=== PATIENT | male | born 1965 | race Caucasian/White ===

== ENCOUNTER 2018-10-21 10:12 | Inpatient (IN) | payer OTHER ==
[~2018-10-21] VITALS: Ht 180.3 cm; Wt 72.1 kg
[2018-10-21] MEDS ORDERED: SODIUM CHLORIDE 0.9% 1000ML 1,000 ML IV STA (10:42)
[2018-10-21 11:14] LABS: BASOPHILS % 0.2 % (0.0-1.0); EOSINOPHILS # (AUTO) 0.3 (0.0-0.4); EOSINOPHILS % 3.6 % (0.0-6.0); HEMATOCRIT 41.5 % (38.2-49.6); HEMOGLOBIN 16.1 g/dL (14.0-18.0); LYMPHOCYTES # (AUTO) 1.9 (1.0-3.2); LYMPHOCYTES % 20.2 % (18.0-39.1); MEAN CORPUSCULAR HEMOGLOBIN 36.9 pg (28-32); MEAN CORPUSCULAR HGB CONC 38.8 g/dL (31-35); MEAN CORPUSCULAR VOLUME 95.2 fL (81-99); MONOCYTES # (AUTO) 1.2 (0.2-0.8); MONOCYTES % 12.3 % (4.4-11.3); NEUTROPHILS # (AUTO) 5.9 (2.1-6.9); NEUTROPHILS % 63.3 % (38.7-80.0); PLATELET COUNT 242 x10e3/uL (140-360); RED BLOOD COUNT 4.36 x10e6/uL (4.3-5.7); RED CELL DISTRIBUTION WIDTH 10.7 % (11.7-14.4)
--- NOTE | 2018-10-21 11:28 | Diagnostic Imaging Report ---
EXAMINATION: CHEST 2 VIEWS INDICATION: ^ORDER PLACED BY ^[id number] ^1045 ^Y COMPARISON: None FINDINGS: PA and lateral views TUBES and LINES: None. LUNGS: Lungs are well inflated. Mild central peribronchovascular cuffing. PLEURA: No pleural effusion or pneumothorax. HEART AND MEDIASTINUM: The cardiomediastinal silhouette is unremarkable. BONES AND SOFT TISSUES: No acute osseous lesion. Soft tissues are unremarkable. UPPER ABDOMEN: No free air under the diaphragm. IMPRESSION: Mild central peribronchovascular cuffing. No focal consolidation. Signed by: Dr. Carlos Lemon MD on 10/21/2018 11:24 AM
[2018-10-21] MEDS ORDERED: ONDANSETRON HCL INJ 2MG/ML 2ML 2 MG/ML VIAL IV ONE (11:30)
[2018-10-21 11:35] LABS: ALANINE AMINOTRANSFERASE 62 IU/L (0-55); ALBUMIN 3.6 g/dL (3.5-5.0); ALBUMIN/GLOBULIN RATIO 0.8 (0.8-2.0); ALKALINE PHOSPHATASE 148 IU/L (40-150); BLOOD UREA NITROGEN < 5 mg/dL (7-26); CALCIUM 9.2 mg/dL (8.4-10.2); CREATINE KINASE 155 IU/L (30-200); CREATININE, SERUM 0.74 mg/dL (0.72-1.25); EST GLOMERULAR FILTRATION RATE > 60 ML/MIN (60-)
[2018-10-21 11:39] LABS: BUN/CREATININE RATIO 7 (6-25)
[2018-10-21 11:41] LABS: COLOR,URINE YELLOW (YELLOW)
[2018-10-21 11:42] LABS: BILIRUBIN,URINE NEGATIVE (NEGATIVE); CLARITY,URINE HAZY (CLEAR); KETONES,URINE NEGATIVE (NEGATIVE); LEUKOCYTE ESTERASE ,URINE TRACE (NEGATIVE); NITRITE,URINE NEGATIVE (NEGATIVE); PROTEIN,URINE DIPSTICK TRACE (NEGATIVE); URINE UROBILINOGEN 1 mg/dL (0.2 - 1)
[2018-10-21 11:51] LABS: INFLUENZAE A&B ANTIGEN (RAPID) NEGATIVE (NEGATIVE); STREPTOCOCCUS GRP A ANTIGEN NEGATIVE (NEGATIVE)
[2018-10-21 11:53] LABS: BACTERIA,URINE FEW /HPF; EPITHELIAL CELLS,URINE FEW /LPF; RBC,URINE 0-5 /HPF (0-5); WBC,URINE (MAN) 0-5 /HPF (0-5)
[2018-10-21 12:01] LABS: ANION GAP 17.6 mmol/L (8-16); CARBON DIOXIDE 22 mmol/L (22-29); CHLORIDE 80 mmol/L (98-107); POTASSIUM 3.6 mmol/L (3.5-5.1)
[2018-10-21 12:05] LABS: SODIUM 116 mmol/L (136-145)
[2018-10-21] MEDS: PIPER-TAZ 3.375 GM 50 ML IV SCH ×2 (12:37→18:21)
[2018-10-21 12:44] LABS: GLUCOSE 124 mg/dL (74-118); OSMOLALITY,SERUM 233 mOsm/kg (278-305)
--- NOTE | 2018-10-21 12:55 | Diagnostic Imaging Report ---
EXAM: CT Pelvis WITH contrast INDICATION: ^r/o abscess COMPARISON: None. TECHNIQUE: Pelvis were scanned utilizing a multidetector helical scanner from the iliac crest to the pubic symphysis after administration of IV contrast. Coronal and sagittal reformations were obtained. Routine protocol was performed. Scan was performed when during portal venous phase. IV CONTRAST: 100 mL of Isovue-370 ORAL CONTRAST: Water COMPLICATIONS: None RADIATION DOSE: Total DLP: 218.18 mGy*cm Estimated effective dose: (DLP x 0.015 x size factor) mSv CTDIvol has been reviewed. It is below the limits set by the Radiation Protocol Committee (RPC). FINDINGS: LINES and TUBES: None. GI TRACT: Mild lower rectal wall thickening. There is colonic diverticulosis without evidence of diverticulitis in the visualized portion. Visualized small bowel loops are unremarkable. No evidence of bowel obstruction. PELVIC ORGANS/BLADDER: Mild lower rectal wall thickening. Multiple pelvic phleboliths. No perineal abscess visualized. LYMPH NODES: No lymphadenopathy. VESSELS: Mild to moderate aortoiliac atherosclerotic disease. PERITONEUM / RETROPERITONEUM: No free air or fluid. BONES: Unremarkable. Left iliac sclerotic focus (series 2, image 14), likely a bone island. SOFT TISSUES: Small fat-containing left inguinal hernia. IMPRESSION: No perineal abscess visualized. Mild lower rectal wall thickening, which could represent mild proctitis in the appropriate clinical context. Signed by: Dr. Carlos Lemon MD on 10/21/2018 12:51 PM
[2018-10-21] MEDS ORDERED: SODIUM CHLORIDE 0.9% 1000ML 1,000 ML IV SCH (13:29)
[2018-10-21] MEDS ORDERED: ONDANSETRON HCL INJ 2MG/ML 2ML 2 MG/ML VIAL IV PRN (13:30)
[2018-10-21] MEDS ORDERED: PROMETHAZINE 12.5MG/ NACL 0.9% 12.5 MG/50 ML BAG IV PRN (13:30)
--- OUTSIDE RECORDS SUMMARY | 2018-10-21 13:40 | XMS REPORT ---
Author Author [facility] Address Unknown Phone Unavailable Care Team Providers Care Traffic Manager Name Role Phone Briana ASHER Unavailable Unavailable Problems This patient has no known problems. Allergies, Adverse Reactions, Alerts This patient has no known allergies or adverse reactions. Medications This patient has no known medications. Results Test Description Test Time Test Comments Text Results Atomic Results Result Comments CT PELVIS W 2018-10-21 12:43:00 [facility] [address] [place] [address] Patient Name: LUCY LUGO MR #: [id number] : 1965 Age/Sex: 53/M Req #: [id number] Adm Physician: Ordered by: SOCORRO JUAREZ DELIVERY CREW WORKER Report #: [id number] Location: ER Room/Bed: Procedure: [id number] CT/CT PELVIS W Exam Date: Exam Time: REPORT STATUS: Signed EXAM: CT Pelvis WITH contrast INDICATION: r/o abscess COMPARI SON: None. TECHNIQUE: Pelvis were scanned utilizing a multidetector helical scanner from the iliac crest to the pubic symphysis after administration of IV contrast. Coronal and sagittal reformations were obtained. Routine protocol was performed. Scan was performed when during portal venous phase. IV CONTRAST: 100 mL of Isovue-370 ORAL CONTRAST: Water COMPLICATIONS: None RADIATION DOSE: Total DLP: 218.18 mGy*cm Estimated effective dose: (DLP x 0.015 x size factor) mSv CTDIvol has been reviewed. It is below the limits set by the Radiation Protocol Committee (RPC). FINDINGS: LINES and TUBES: None. GI TRACT: Mild lower rectal wall thickening. There is colonic diverticulosis without evidence of diverticulitis in the visualized portion. Visualized small bowel loops are unremarkable. No evidence of bowel obstruction. PELVIC ORGANS/BLADDER: Mild lower rectal wall thickening. Multiple pelvic phleboliths. No perineal abscess visualized. LYMPH NODES: No lymphadenopathy. VESSELS: Mild to moderate aortoiliac atherosclerotic disease. PERITONEUM / RETROPERITONEUM: No free air or fluid. BONES: Unremarkable. Left iliac sclerotic focus (series 2, image 14), likely a bone island. SOFT TISSUES: Small fat-containing left inguinal hernia. IMPRESSION: No perineal abscess visualized. Mild lower rectal wall thickening, which could represent mild proctitis in the appropriate clinical context. Signed by: Dr. Carlos Pratt MD on 10/21/2018 12:51 PM Dictated By: CARLOS PRATT MD 1251 Transcribed By: DANICA on 10/21/18 1251 COPY TO: SOCORRO JUAREZ DELIV[employer]W WORKER CHEST 2 VIEWS 2018-10-21 11:23:00 [place] [address] Patient Name: LUCY LUGO MR #: [id number] : 1965 Age/Sex: 53/M Req #: [id number] Adm Physician: Ordered by: SOCORRO JUAREZ DELIV[employer] WORKER Report #: [id number] Location: ER Room/Bed: Procedure: [id number] DX/CHEST 2 VIEWS Exam Date: 10/21/18 Exam Time: 1045 REPORT STATUS: Signed EXAMINATION: CHEST 2 VIEWS INDICATION: ORD ER PLACED BY [id number] 1045 Y COMPARISON: None FINDINGS: PA and lateral views TUBES and LINES: None. LUNGS: Lungs are well inflated. Mild central peribronchovascular cuffing. PLEURA: No pleural effusion or pneumothorax. HEART AND MEDIASTINUM: The cardiomediastinal silhouette is unremarkable. BONES AND SOFT TISSUES: No acute osseous lesion. Soft tissues are unremarkable. UPPER ABDOMEN: No free air under the diaphragm. IMPRESSION: Mild central peribronchovascular cuffing. No focal consolidation. Signed by: Dr. Janna Pratt MD on 10/21/2018 11:24 AM Dictated By: CARLOS PRATT MD 1124 Transcribed By: DANICA on 10/21/18 1124 COPY TO: SOCORRO JUAREZ NP
[2018-10-21] MEDS ORDERED: SODIUM CHLORIDE 0.9% 1000ML 1,000 ML ONE (13:41)
[2018-10-21] MEDS: VANCOMYCIN 1GM/NS 250 ML 250 ML IV SCH (13:44)
--- NOTE | 2018-10-21 15:21 | NUR ---
pt resting comfortably in bed watching tv and makes no complaints at this time
[2018-10-21] MEDS: NICOTINE 14 MG/EA PATCH TOP SCH (16:22)
[2018-10-21] MEDS ORDERED: HYDRALAZINE HCL 20 MG/ML VIAL IV PRN (17:30)
[2018-10-21] MEDS ORDERED: ACETAMINOPHEN 325 MG TAB PO PRN (17:30)
[2018-10-21] MEDS ORDERED: IOPAMIDOL 370 MG/ML 200 ML INFUS..BTL INJ ONE (18:45)
[2018-10-21] MEDS ORDERED: SODIUM CHLORIDE 0.9% 50ML 50 ML ONE (18:45)
--- NOTE | 2018-10-21 19:09 | NUR ---
walking round done with JOE Rehman
--- NOTE | 2018-10-21 19:25 | NUR ---
clarified with [employer] financial controller regarding sodium of 116. patient had 1000cc bolus ns previous shift and is now on maintenence 100cc/hr fluid, nonprofit financial controller wants no further interventions at this time.
--- NOTE | 2018-10-21 19:57 | NUR ---
attempted to call consult to dr martinez, , followed prompts, was relayed to voicemail, left a detailed voicemail to have md call back.
--- NOTE | 2018-10-21 20:08 | NUR ---
PAGED CONSULT FOR , SPOKE TO SHELLY ANSWERING SERVICE, [phone], SHELLY WILL GIVE CALL TO DR BIRCH
--- NOTE | 2018-10-21 21:22 | NUR ---
WAS ABLE TO REACH DR ZULETA, RECIEVED ORDERS TO STOP NS, AND DRAW STAT SODIUM LEVEL.
[2018-10-21 22:08] LABS: ANION GAP 10.8 mmol/L (8-16); BLOOD UREA NITROGEN < 5 mg/dL (7-26); CALCIUM 8.5 mg/dL (8.4-10.2); CARBON DIOXIDE 24 mmol/L (22-29); CHLORIDE 92 mmol/L (98-107); EST GLOMERULAR FILTRATION RATE > 60 ML/MIN (60-); GLUCOSE 106 mg/dL (74-118); POTASSIUM 3.8 mmol/L (3.5-5.1); SODIUM 123 mmol/L (136-145)
[2018-10-21 22:14] LABS: BUN/CREATININE RATIO 7 (6-25)
[2018-10-21] MEDS ORDERED: DEXTROSE 5% 1,000 ML IV SCH (22:30)
[2018-10-21 23:00] VITALS: BP 115/67
[2018-10-21 23:07] VITALS: BP 115/67
--- NOTE | 2018-10-21 23:18 | NUR ---
patient came from ER awake alert oriented, no distress noted. vitals checked, all within normal level. noted to right buttock perineal area swelling, no discharge noted. noted dry unproductive coughs, and patient has nicotine patch to left shoulder.
[2018-10-21] MEDS ORDERED: LISINOPRIL10 MG PO (23:25)
[2018-10-21] MEDS ORDERED: AMLODIPINE BESY10 MG PO (23:25)
[2018-10-22] VITALS (9 sets, daily range): BP systolic 102–155; BP diastolic 59–103
[2018-10-22] MEDS: PIPER-TAZ 3.375 GM 50 ML IV SCH ×3 (00:11→11:33)
[2018-10-22] MEDS: VANCOMYCIN 1GM/NS 250 ML 250 ML IV SCH ×2 (00:58→13:51)
--- NOTE | 2018-10-22 03:00 | NUR ---
dr sam champion called, he is aware that patient is consulted to him, he stated he will come and see the patient later today.
[2018-10-22 03:16] LABS: BASOPHILS % 0.4 % (0.0-1.0); EOSINOPHILS # (AUTO) 0.5 (0.0-0.4); EOSINOPHILS % 4.9 % (0.0-6.0); HEMATOCRIT 35.2 % (38.2-49.6); HEMOGLOBIN 13.5 g/dL (14.0-18.0); LYMPHOCYTES # (AUTO) 2.2 (1.0-3.2); LYMPHOCYTES % 23.7 % (18.0-39.1); MEAN CORPUSCULAR HEMOGLOBIN 37.3 pg (28-32); MEAN CORPUSCULAR HGB CONC 38.4 g/dL (31-35); MEAN CORPUSCULAR VOLUME 97.2 fL (81-99); MONOCYTES # (AUTO) 1.3 (0.2-0.8); MONOCYTES % 13.8 % (4.4-11.3); NEUTROPHILS # (AUTO) 5.4 (2.1-6.9); NEUTROPHILS % 56.9 % (38.7-80.0); PLATELET COUNT 197 x10e3/uL (140-360); RED BLOOD COUNT 3.62 x10e6/uL (4.3-5.7); RED CELL DISTRIBUTION WIDTH 11.2 % (11.7-14.4)
[2018-10-22 03:53] LABS: ALANINE AMINOTRANSFERASE 55 IU/L (0-55); ALBUMIN/GLOBULIN RATIO 1.1 (0.8-2.0); ALKALINE PHOSPHATASE 140 IU/L (40-150); ANION GAP 11.5 mmol/L (8-16); BLOOD UREA NITROGEN < 5 mg/dL (7-26); CALCIUM 8.4 mg/dL (8.4-10.2); CARBON DIOXIDE 23 mmol/L (22-29); CHLORIDE 96 mmol/L (98-107); CREATININE, SERUM 0.65 mg/dL (0.72-1.25); EST GLOMERULAR FILTRATION RATE > 60 ML/MIN (60-); GLUCOSE 91 mg/dL (74-118); POTASSIUM 3.5 mmol/L (3.5-5.1); SODIUM 127 mmol/L (136-145)
[2018-10-22 03:54] LABS: BUN/CREATININE RATIO 8 (6-25)
[2018-10-22 04:01] LABS: FREE T4 (FREE THYROXINE) 1.08 ng/dL (0.9-1.8); THYROID STIMULATING HORMONE 1.535 uIU/mL (0.350-4.940)
--- NOTE | 2018-10-22 04:43 | NUR ---
called and reported lab results to dr martinez as he requested, the MD ordered to increase Iv fluid to 125cc/h and repeat again lab at 9 am.
[2018-10-22] MEDS: PANTOPRAZOLE 40 MG 10ML VIAL IV SCH (08:21)
[2018-10-22 09:45] LABS: ANION GAP 11.4 mmol/L (8-16); BLOOD UREA NITROGEN < 5 mg/dL (7-26); CALCIUM 8.6 mg/dL (8.4-10.2); CARBON DIOXIDE 25 mmol/L (22-29); CHLORIDE 93 mmol/L (98-107); CREATININE, SERUM 0.72 mg/dL (0.72-1.25); EST GLOMERULAR FILTRATION RATE > 60 ML/MIN (60-); GLUCOSE 132 mg/dL (74-118); POTASSIUM 3.4 mmol/L (3.5-5.1); SODIUM 126 mmol/L (136-145)
[2018-10-22 10:07] LABS: BUN/CREATININE RATIO 7 (6-25)
[2018-10-22] MEDS ORDERED: LORAZEPAM INJ 2 MG/ML VIAL IV PRN (10:30)
--- NOTE | 2018-10-22 11:15 | NUR ---
dr martinez present for lab results. making rounds at this time.
[2018-10-22] MEDS: NICOTINE 14 MG/EA PATCH TOP SCH (14:55)
[2018-10-22 18:52] LABS: ANION GAP 13.4 mmol/L (8-16); BLOOD UREA NITROGEN < 5 mg/dL (7-26); CALCIUM 8.6 mg/dL (8.4-10.2); CARBON DIOXIDE 23 mmol/L (22-29); CHLORIDE 93 mmol/L (98-107); CREATININE, SERUM 0.74 mg/dL (0.72-1.25); EST GLOMERULAR FILTRATION RATE > 60 ML/MIN (60-); GLUCOSE 160 mg/dL (74-118); POTASSIUM 3.4 mmol/L (3.5-5.1); SODIUM 126 mmol/L (136-145)
[2018-10-22 18:59] LABS: BUN/CREATININE RATIO 7 (6-25)
--- NOTE | 2018-10-22 19:17 | Consultation ---
DATE OF CONSULTATION: 10/22/2018 Nephrology Consultation Note REASON FOR CONSULTATION: Hyponatremia. HISTORY OF PRESENT ILLNESS: This is a 53-year-old male, chronic alcoholic, comes in with dehydration, nausea, vomiting, diarrhea, concern for perineal abscess in which Nephrology was consulted for underlying hyponatremia. On further investigation, the patient reports he is a chronic alcoholic, drinks about 4 to 6 beers a day, not including liquor. He does report when he has these episodes of drinking daily. He does not recall ever having any hyponatremia in the past, but he is very noncompliant following up with the PCP. The patient is seen and evaluated at bedside on the medical floor. Currently, he is doing well with no other issues. I was notified last night around 9:30 p.m. or 10 p.m. about this change of hyponatremia. In further investigation, his presentation shows sodium of 116 at 10:35 a.m., in which overnight I had ordered frequent sodium levels and added D5W. As this morning, his serum sodium was found to be 126. The patient is currently doing well with no other issues at this time. REVIEW OF SYSTEMS: Pertinent positive: Nausea, vomiting, dehydration. Pertinent negative: Denies any chest pain, palpitation, dysuria, hematuria, frequency, urgency, lightheadedness, dizziness, abdominal pain, headaches, shortness of breath, cough, congestion, fever, or any other complaints. Rest of 14-point review of systems has been reviewed with the patient and are negative. ALLERGIES: NO KNOWN DRUG ALLERGIES. HOME MEDICATIONS: 1. Amlodipine 10 mg a day. 2. Lisinopril 10 mg daily. PAST MEDICAL HISTORY: Chronic alcoholic medical noncompliance and hypertension. PAST SURGICAL HISTORY: Reports none. FAMILY HISTORY: Hypertension and diabetes. SOCIAL HISTORY: Chronic alcoholic 4 to 6 beers daily, not including liquor. No drugs. No smoking. PHYSICAL EXAMINATION: VITAL SIGNS: Temperature 98.2, pulse 81, respiratory rate 16, blood pressure 118/76, pulse ox is 98% on room air. GENERAL: Not in acute distress. Alert, oriented x3. Cooperative on examination. HEENT: Head normocephalic, atraumatic. Eyes, pupils equal, reactive to light bilaterally. Extraocular motion intact bilaterally. NECK: Supple. Good range of motion throughout. No evidence of erythema or exudates in the posterior pharynx. Has poor dentition. PULMONARY: Clear to auscultation bilaterally. No wheezing, rales, or crackles appreciated. CARDIAC: Positive S1 and S2. No murmur or gallop appreciated. ABDOMEN: Soft, nondistended, nontender to palpation. Bowel sounds present. MUSCULOSKELETAL: Strength is 5/5 throughout. No evidence of any muscle deficits on examination. No weakness appreciated. NEUROLOGIC: Cranial nerves II through XII are grossly intact. No evidence of any neurological deficits on exam. SKIN: Intact. Warm to touch. Good cap refill. PSYCHIATRIC: Normal mood and affect. EXTREMITIES: No edema. Good range of motion throughout. LABORATORY DATA: Show white count 9.4, hemoglobin 13.5, hematocrit 35, platelets of 197. Chemistry, sodium is 126, on admission was 116, potassium 3.4, chloride 93, bicarb 25, anion gap of 11, BUN is less than 5, creatinine is 0.72. Glucose is 132. A1c is 5. LFTs were total bilirubin was 1.3, AST 183, ALT 55, alkaline phosphatase 140. Lipase is pending. Urinalysis was found to be negative. Flu was negative. Group B strep was negative. MICROBIOLOGY: Blood cultures negative. Throat culture is pending. Urine culture pending. IMAGING STUDIES: Chest x-ray was found to show some mild central peribronchovascular cuffing. No focal consolidation. Pelvis CT shows no perineal abscess visualized. Mild lower rectal wall thickening, which could represent mild proctitis in the appropriate clinical context. IMPRESSION: 1. Euvolemic hypotonic hyponatremia, likely secondary to beer potomania. 2. Perineal abscess and proctitis. 3. Chronic alcoholic. 4. Hypertension. PLAN: At this time, his sodium has been corrected appropriately, currently 126. Stop all D5W drips. We will be getting serum sodium levels q.12 hours. He has improved tremendously. We will continue same plan of care. Medications were reviewed. No evidence of any diuretics. I feel like this is likely secondary to beer potomania, in which he did not eat enough at home. Continue same plan of care. Monitor closely. Replace potassium. Get a.m. labs. Once again, thank you so much for this consultation. We will continue to follow with you. MD NANCIE Sanchez/MUKESH /[id number]
--- NOTE | 2018-10-22 19:30 | NUR ---
Received patient hemodynamically stable, no complaints raised
--- NOTE | 2018-10-22 21:29 | History and Physical ---
CHIEF COMPLAINT: Concerned about perirectal abscess. HISTORY OF PRESENT ILLNESS: This patient is a 53-year-old white male with history of smoking. Back in March of last year, he had infection of his right foot with what seemed to be thrombophlebitis. He tells me there was redness going up his leg. Two days later, he had infection in the perineal area. He was given antibiotic for 2 weeks with total resolution and then suddenly a week ago, he does have redness and swelling in the perianal area again in the same spot. He was given antibiotic shots. [facility] and he was told if it is not any better, to come back to the emergency room where he would need a CT scan. The patient took his antibiotics, but on Tuesday, he was not feeling well, nauseous, throwing up, felt really bad. The next day, he felt even worse, so he came to the hospital. He had a CAT scan which showed no perineal abscess, but there is mild lower rectal wall thickening, which could represent mild proctitis. The patient is currently lying in bed comfortably. He has no complaints. PAST MEDICAL HISTORY: Hypertension and smoking as mentioned above. PAST SURGICAL HISTORY: Denies. ALLERGIES: NKA. SOCIAL HISTORY: He smoked one pack a day for several years. Drinks four beers a day. REVIEW OF SYSTEMS: HEENT: There is no headache, visual changes, or hearing changes. GI: There is currently no nausea, no vomiting, no diarrhea. CARDIAC: There is no arrhythmia. NEURO: There is no seizure activity. SKIN: There is no rash. All other symptoms at the present time are within normal limits. He said his nausea and vomiting have resolved and there is no abdominal pain. MEDICATION LIST: He is on Nicoderm, vancomycin, Zosyn, lorazepam, and Tylenol. PHYSICAL EXAMINATION: GENERAL: He is currently alert, oriented, not in acute distress. VITAL SIGNS: Currently afebrile. HEENT: Not icteric. Normocephalic. NECK: Supple. No JVD. No lymphadenopathy. No thyromegaly. CHEST: Clear bilateral. HEART: S1 and S2. No S3, S4, or murmur. ABDOMEN: Soft. Bowel sounds present. No tenderness. EXTREMITIES: No edema. SKIN: There is no rash. JOINT: No erythema or edema. : Scrotal area and perineal area, there is no redness, no swelling at present time. IMPRESSION: 1. History of what seemed to be an abscess in the perianal area drained. CAT scan does not show an abscess at present time, but there is proctitis. Also physical examination does not reveal an abscess at the present time. I would recommend to discontinue vancomycin and discontinue Zosyn. We will put him on Flagyl. He would need colonoscopy, which could be done as an outpatient. 2. History of smoking. 3. Concern about diabetes mellitus. Glucose 132. Needs workup. 4. We will follow. MD SHARI Mckenzie/MUKESH /[id number]
[2018-10-22] MEDS: METRONIDAZOLE 500MG/NS 100ML 100 ML IV SCH (22:00)
[2018-10-23] VITALS (10 sets, daily range): BP systolic 124–138; BP diastolic 79–89
--- NOTE | 2018-10-23 01:00 | NUR ---
Reviewed by Dr Cabral , ordered for stool occult
[2018-10-23 05:29] LABS: BASOPHILS # (AUTO) 0.1 (0.0-0.1); BASOPHILS % 0.7 % (0.0-1.0); EOSINOPHILS # (AUTO) 0.5 (0.0-0.4); EOSINOPHILS % 5.4 % (0.0-6.0); HEMATOCRIT 37.7 % (38.2-49.6); HEMOGLOBIN 14.1 g/dL (14.0-18.0); LYMPHOCYTES % 22.4 % (18.0-39.1); MEAN CORPUSCULAR HEMOGLOBIN 37.1 pg (28-32); MEAN CORPUSCULAR HGB CONC 37.4 g/dL (31-35); MEAN CORPUSCULAR VOLUME 99.2 fL (81-99); MONOCYTES # (AUTO) 1.3 (0.2-0.8); MONOCYTES % 14.6 % (4.4-11.3); NEUTROPHILS # (AUTO) 5.1 (2.1-6.9); NEUTROPHILS % 56.6 % (38.7-80.0); PLATELET COUNT 208 x10e3/uL (140-360); RED CELL DISTRIBUTION WIDTH 11.2 % (11.7-14.4)
[2018-10-23 05:50] LABS: ALANINE AMINOTRANSFERASE 58 IU/L (0-55); ALBUMIN 3.1 g/dL (3.5-5.0); ALBUMIN/GLOBULIN RATIO 0.9 (0.8-2.0); ALKALINE PHOSPHATASE 128 IU/L (40-150); ANION GAP 10.9 mmol/L (8-16); BLOOD UREA NITROGEN < 5 mg/dL (7-26); CALCIUM 8.8 mg/dL (8.4-10.2); CARBON DIOXIDE 29 mmol/L (22-29); CHLORIDE 93 mmol/L (98-107); CREATININE, SERUM 0.68 mg/dL (0.72-1.25); EST GLOMERULAR FILTRATION RATE > 60 ML/MIN (60-); GLUCOSE 94 mg/dL (74-118); POTASSIUM 3.9 mmol/L (3.5-5.1); SODIUM 129 mmol/L (136-145)
[2018-10-23 05:53] LABS: BUN/CREATININE RATIO 7 (6-25)
[2018-10-23] MEDS: METRONIDAZOLE 500MG/NS 100ML 100 ML IV SCH (06:00)
[2018-10-23 06:27] LABS: FOLATE 4.9 ng/mL (7.0-15.4)
[2018-10-23 07:13] LABS: FERRITIN 1176.15 ng/mL (21.81-274.66)
[2018-10-23] MEDS: AMLODIPINE BESYLATE 10 MG TAB PO SCH (08:44)
[2018-10-23] MEDS: FOLIC ACID 1 MG TAB PO SCH (08:44)
[2018-10-23] MEDS: PANTOPRAZOLE 40 MG 10ML VIAL IV SCH (08:44)
--- NOTE | 2018-10-23 11:45 | NUR ---
Patient given written instructions about c-diff and contact isolation.
[2018-10-23] MEDS ORDERED: VANCOMYCIN 250MG/5ML ORAL SOLN PO SCH (12:00)
[2018-10-23] MEDS: VANCOMYCIN 250MG/5ML ORAL SOLN PO SCH ×3 (12:02→23:27)
--- NOTE | 2018-10-23 13:30 | NUR ---
Report given to oncoming nurse. Call jefferson within reach.
--- NOTE | 2018-10-23 13:52 | Progress Note ---
DATE: SUBJECTIVE: The patient is doing well today with no complaints. Sodium level is 129. Tolerating diet well. PHYSICAL EXAMINATION: VITAL SIGNS: Temperature is 97, pulse 73, respiratory rate is 19, blood pressure is 128/89, and pulse ox is 97% on room air. GENERAL: Not in acute distress. Alert and oriented x3. Cooperative on examination. HEENT: Head is normocephalic and atraumatic. Eyes; pupils are equal, round, and reactive to light bilaterally. Extraocular movements are intact bilaterally. Throat, no evidence of erythema or exudates in the posterior pharynx. Has poor dentition. NECK: Supple. Good range of motion. PULMONARY: Clear to auscultation bilaterally. No wheezing, no rales, no rhonchi, no crackles appreciated. CARDIOVASCULAR: Positive S1, S2. No murmurs, rubs, or gallops appreciated. ABDOMEN: Soft, nondistended, and nontender to palpation. Bowel sounds present. MUSCULOSKELETAL: Strength is 5/5 throughout. No evidence of any muscle deficits on examination. No weakness appreciated. NEUROLOGICAL: Cranial nerves II through XII grossly intact. No evidence of any neurological deficits on exam. SKIN: Intact. Warm to touch. Good cap refill. PSYCHIATRIC: Normal affect and mood. EXTREMITIES: No edema. Good range of motion throughout. LABS: Show white count is 9, hemoglobin 14, hematocrit 37, and platelets of 208. Chemistry; sodium 129, potassium 3.9, chloride 93, bicarb 29, anion gap of 10, BUN is 5, creatinine 0.68, and glucose 94. All cultures are negative. IMPRESSION: 1. Euvolemic hypotonic hyponatremia, likely secondary to beer potomania. 2. Perineal abscess with proctitis. 3. Chronic alcohol abuse. 4. Hypertension. PLAN: At this time, sodium is 129. Continue with same plan of care volume restriction of 1.2 L. No need for salt tabs or any IV fluids. The patient is doing well with no complaints. Continue same plan of care. Get a.m. labs. Replace the electrolytes. MD NANCIE Sanchez/MODYomaira /[id number]
[2018-10-23] MEDS: NICOTINE 14 MG/EA PATCH TOP SCH (14:39)
--- NOTE | 2018-10-23 15:12 | Diagnostic Imaging Report ---
EXAM: Right upper quadrant abdominal ultrasound INDICATION: Nausea, vomiting. COMPARISON: CT pelvis with contrast 10/21/2018. TECHNIQUE: Transverse and longitudinal images of the right upper quadrant abdomen were obtained FINDINGS: Liver: Size: 17.2 cm in the right midclavicular line Appearance: Increased echogenicity, smooth contour Mass: No focal masses Gallbladder: No distention, pericholecystic fluid, wall thickening, stone, or reported sonographic Casey's sign. Gallbladder wall measures 0.2 cm. Bile Ducts: Intrahepatic Ducts: No dilatation Extrahepatic Ducts: Common bile duct measures 0.5 cm, no dilatation Pancreas: Visualized portions of the pancreatic head, neck and proximal body are normal. Kidney: The right kidney measures 10.8 cm without evidence of hydronephrosis or stone. Vessels: Aorta: Visualized portions are normal Inferior Vena Cava: Visualized portions are normal Main Portal Vein: 1.3 cm, normal size with hepatopetal flow. Free Fluid: No evidence of ascites. IMPRESSION: Hepatomegaly with hepatic steatosis. No sonographic evidence of cholecystitis or cholelithiasis. Signed by: Dr. Kaye Quinteros MD on 10/23/2018 3:08 PM
[2018-10-23 22:47] LABS: OSMOLALITY,SERUM OSMOMETER 241 mOsmol/kg (275-295)
[2018-10-24] VITALS (7 sets, daily range): BP systolic 115–147; BP diastolic 80–91
--- NOTE | 2018-10-24 02:00 | NUR ---
Dr.M Cabral round the patient at this time. NNO.
[2018-10-24 05:27] LABS: BASOPHILS # (AUTO) 0.1 (0.0-0.1); BASOPHILS % 0.8 % (0.0-1.0); EOSINOPHILS # (AUTO) 0.4 (0.0-0.4); EOSINOPHILS % 4.5 % (0.0-6.0); HEMATOCRIT 39.7 % (38.2-49.6); HEMOGLOBIN 14.4 g/dL (14.0-18.0); LYMPHOCYTES # (AUTO) 2.3 (1.0-3.2); MEAN CORPUSCULAR HEMOGLOBIN 35.6 pg (28-32); MEAN CORPUSCULAR HGB CONC 36.3 g/dL (31-35); MONOCYTES # (AUTO) 1.3 (0.2-0.8); MONOCYTES % 14.4 % (4.4-11.3); NEUTROPHILS % 55.1 % (38.7-80.0); PLATELET COUNT 238 x10e3/uL (140-360); RED BLOOD COUNT 4.05 x10e6/uL (4.3-5.7); RED CELL DISTRIBUTION WIDTH 10.9 % (11.7-14.4)
[2018-10-24] MEDS: VANCOMYCIN 250MG/5ML ORAL SOLN PO SCH ×4 (05:38→23:52)
[2018-10-24 05:48] LABS: ANION GAP 11.3 mmol/L (8-16); BLOOD UREA NITROGEN < 5 mg/dL (7-26); BUN/CREATININE RATIO 7 (6-25); CALCIUM 9.3 mg/dL (8.4-10.2); CARBON DIOXIDE 29 mmol/L (22-29); CHLORIDE 89 mmol/L (98-107); CREATININE, SERUM 0.68 mg/dL (0.72-1.25); EST GLOMERULAR FILTRATION RATE > 60 ML/MIN (60-); GLUCOSE 100 mg/dL (74-118); POTASSIUM 4.3 mmol/L (3.5-5.1); SODIUM 125 mmol/L (136-145)
--- NOTE | 2018-10-24 07:18 | NUR ---
Report given to oncoming nurse,walking round done.
[2018-10-24] MEDS: CYANOCOBALAMIN INJ 1,000 MCG/ML VIAL IM SCH (09:05)
[2018-10-24] MEDS: FOLIC ACID 1 MG TAB PO SCH (09:05)
[2018-10-24] MEDS: PANTOPRAZOLE 40 MG 10ML VIAL IV SCH (09:05)
[2018-10-24] MEDS: AMLODIPINE BESYLATE 10 MG TAB PO SCH (09:06)
--- NOTE | 2018-10-24 14:45 | NUR ---
Dr. Abdi is at the bedside making rounds, spoke to patient at length about POC, Sodium tablets and fluid restriction of 1.2L. Patient verbalized understanding.
[2018-10-24] MEDS: NICOTINE 14 MG/EA PATCH TOP SCH (15:06)
[2018-10-24] MEDS: SODIUM CHLORIDE 1 GM TAB PO SCH ×2 (15:11→21:13)
--- NOTE | 2018-10-24 17:43 | Progress Note ---
DATE: 10/24/2018 Nephrology Progress Note SUBJECTIVE: The patient's sodium dropped to 125. He is likely drinking significant amount of soda Sprite, which is leading to the hyponatremia. I have now requested volume restriction on the patient and to be monitored very closely. Salt tabs have been started. PHYSICAL EXAMINATION: VITAL SIGNS: Temperature is 98.3, pulse 68, respiratory rate is 17, blood pressure 132/83, and pulse ox is 99% on room air. GENERAL: Not in acute distress. Alert and oriented x3. Cooperative on examination. HEENT: Head is normocephalic and atraumatic. Eyes; pupils are equal, round, and reactive to light bilaterally. Extraocular movements are intact bilaterally. Throat, no evidence of erythema or exudates in the posterior pharynx. Has poor dentition. NECK: Supple. Good range of motion. PULMONARY: Clear to auscultation bilaterally. No wheezing, no rales, no rhonchi, no crackles appreciated. CARDIOVASCULAR: Positive S1, S2. No murmurs, rubs, or gallops appreciated. ABDOMEN: Soft, nondistended, and nontender to palpation. Bowel sounds present. MUSCULOSKELETAL: Strength is 5/5 throughout. No evidence of any muscle deficits on examination. No weakness appreciated. NEUROLOGICAL: Cranial nerves 2 through 12 grossly intact. No evidence of any neurological deficits on exam. SKIN: Intact. Warm to touch. Good cap refill. PSYCHIATRIC: Normal affect and mood. EXTREMITIES: No edema. Good range of motion throughout. LAB FINDINGS: Show white count 9.1, hemoglobin 14, hematocrit is 39.7, platelets of 238. Chemistry; sodium 125, potassium is 4.3, chloride 89, bicarb 29, BUN is 5, creatinine is 0.68, and glucose is 100, calcium 9.3, magnesium is 2. Ferritin is 1176, iron saturation is 49%. LFTs were slightly elevated. Folate 4.9, vitamin B12 396. Urinalysis found to be negative. Stool occult was negative. C diff was positive. Flu was negative. Group B strep is negative. IMPRESSION: 1. Euvolemic hypotonic hyponatremia, secondary to beer potomania. 2. Perineal abscess with proctitis. 3. Chronic alcohol abuse. 4. Hypertension. PLAN: At this time, sodium level has dropped to 125. We will continue the sodium chloride tabs 2 g p.o. t.i.d., a.m. labs. Also we will do volume restriction at 1.2 L total in a given day. The patient is doing a significant amount of Sprite, which is likely due to dilutional state of the sodium level. I did review his urine electrolytes and it seems to indicate a likely SIADH picture in which free water should be done, but he is currently in this situation, it is not and is not diluting the urine. Otherwise continue same plan of care. Get a.m. labs. MD NANCIE Sanchez/ANTONL /[id number]
--- NOTE | 2018-10-24 20:07 | NUR ---
Report given to JOE Laura. Patient transferred to med-surg 2 ([phone]) @[phone] by walking with stable condition. V/S WNL.
[2018-10-25 05:13] LABS: BASOPHILS # (AUTO) 0.1 (0.0-0.1); BASOPHILS % 0.8 % (0.0-1.0); EOSINOPHILS # (AUTO) 0.3 (0.0-0.4); HEMATOCRIT 39.2 % (38.2-49.6); HEMOGLOBIN 14.5 g/dL (14.0-18.0); LYMPHOCYTES # (AUTO) 2.1 (1.0-3.2); LYMPHOCYTES % 23.4 % (18.0-39.1); MEAN CORPUSCULAR HEMOGLOBIN 36.6 pg (28-32); MONOCYTES # (AUTO) 1.1 (0.2-0.8); MONOCYTES % 12.8 % (4.4-11.3); NEUTROPHILS # (AUTO) 5.2 (2.1-6.9); NEUTROPHILS % 59.8 % (38.7-80.0); PLATELET COUNT 243 x10e3/uL (140-360); RED BLOOD COUNT 3.96 x10e6/uL (4.3-5.7)
[2018-10-25 05:33] VITALS: BP 128/78
[2018-10-25 05:53] LABS: ANION GAP 12.2 mmol/L (8-16); BLOOD UREA NITROGEN 5 mg/dL (7-26); BUN/CREATININE RATIO 7 (6-25); CALCIUM 9.2 mg/dL (8.4-10.2); CARBON DIOXIDE 28 mmol/L (22-29); CHLORIDE 93 mmol/L (98-107); CREATININE, SERUM 0.67 mg/dL (0.72-1.25); EST GLOMERULAR FILTRATION RATE > 60 ML/MIN (60-); GLUCOSE 94 mg/dL (74-118); POTASSIUM 4.2 mmol/L (3.5-5.1); SODIUM 129 mmol/L (136-145)
[2018-10-25] MEDS: VANCOMYCIN 250MG/5ML ORAL SOLN PO SCH ×2 (05:53→12:40)
[2018-10-25 06:55] LABS: ALBUMIN 3.2 g/dL (3.5-5.0); BILIRUBIN,DIRECT 0.5 mg/dL (0.0-0.5)
[2018-10-25 07:49] VITALS: BP 137/82
[2018-10-25 08:34] VITALS: BP 137/82
[2018-10-25] MEDS: CYANOCOBALAMIN INJ 1,000 MCG/ML VIAL IM SCH (08:34)
[2018-10-25] MEDS: FOLIC ACID 1 MG TAB PO SCH (08:34)
[2018-10-25] MEDS: SODIUM CHLORIDE 1 GM TAB PO SCH (08:34)
[2018-10-25] MEDS: AMLODIPINE BESYLATE 10 MG TAB PO SCH (08:34)
[2018-10-25] MEDS: PANTOPRAZOLE 40 MG 10ML VIAL IV SCH (08:34)
[2018-10-25] MEDS ORDERED: VANCOCIN HCL250 MG PO (09:55)
[2018-10-25] MEDS ORDERED: FOLIC ACID1 MG PO (09:55)
[2018-10-25] MEDS ORDERED: ONDANSETRON HCL 4 MG ORAL DISINTEGRATING TAB PO PRN (11:00)
[2018-10-25 11:55] VITALS: BP 125/60
[2018-10-25 11:56] VITALS: BP 141/78
[2018-10-25] MEDS ORDERED: SODIUM CHLORIDE 1 GM TAB PO NR (12:30)
--- NOTE | 2018-10-26 00:11 | Discharge Summary ---
ADMISSION DIAGNOSES: Perirectal swelling, failed outpatient treatment with history of abscess in the area; hyponatremia; hypertension; urinary tract infection; transaminitis; alcohol use; nausea; vomiting; diarrhea; tobacco use. DISCHARGE DIAGNOSES: Perirectal swelling, failed outpatient treatment with history of abscess in the area; hyponatremia; hypertension; urinary tract infection; transaminitis; alcohol use; nausea; vomiting; diarrhea; tobacco use; Clostridium difficile. Rule out perirectal abscess. Hepatic steatosis. Rule out urinary tract infection. Rule out flu. Rule out gastrointestinal bleed. MEDICAL HISTORY: Hypertension. SURGICAL HISTORY: Appendectomy. FAMILY HISTORY: None. SOCIAL HISTORY: The patient admits to smoking 1 pack of cigarettes a day for 40 plus years. He also admits to drinking 4 beers a day with 2 mixed drinks a day for 40 plus years. HOSPITAL COURSE: A 53-year-old male complains of right perirectal pain and pus drainage that began Tuesday. The wound only drained for 2 days. He had associated nausea and vomiting that began on Tuesday and diarrhea that began on . He took Bactrim and Keflex that did not help. He denies fever. On admission, the patient was started on vancomycin and Zosyn, which were switched to Flagyl. On admission, the sodium was 116. Chest x-ray showed mild central peribronchovascular cuffing, no consolidation. CT of the pelvis showed no perineal abscess; mild lower rectal wall thickening, which could represent mild proctitis in the appropriate clinical context. Ultrasound of the abdomen showed hepatomegaly with hepatic steatosis, no evidence of cholecystitis or cholelithiasis. Urine culture negative. Throat culture negative. Blood culture negative. Clostridium difficile positive. The patient was started on vancomycin p.o. and Flagyl was discontinued per ID. Flu negative. Stool for blood negative. The patient will discharge home with 14 more days of vancomycin p.o. per ID recommendation as well as folic acid for anemia. He will follow up with primary care in 1-2 weeks, Dr. Cabral in about 6 weeks, and Infectious Disease as discussed. He was advised on limiting his alcohol intake. The patient's daughter and understand discharge instructions and agrees to plan. Vital signs stable, patient afebrile. Dictated by Ivon Almonte NP MD [facility] /[id number]
== END 2018-10-25 13:06 | disposition home or self-care (01) | DRG 394 ==
LOC: ER 10:12 → ERHOLD 13:29 → IMCU 22:30 → MED/SURG2 10-24 19:45
PROVIDERS: ADMIT Internal Medicine; ATTEND Internal Medicine
DX: K62.89 Other specified diseases of anus and rectum (principal); K61.1 Rectal abscess; A04.72 Enterocolitis due to Clostridium difficile, not specified as recurrent; E87.1 Hypo-osmolality and hyponatremia; N39.0 Urinary tract infection, site not specified; K76.0 Fatty (change of) liver, not elsewhere classified; F17.210 Nicotine dependence, cigarettes, uncomplicated; I10 Essential (primary) hypertension; R74.0 Nonspecific elevation of levels of transaminase and lactic acid dehydrogenase [LDH]; F10.20 Alcohol dependence, uncomplicated; D52.9 Folate deficiency anemia, unspecified; K21.9 Gastro-esophageal reflux disease without esophagitis
CPT/HCPCS: 36415; 71046; 72193; 76705; 80048; 80053; 80076; 80202; 81001; 82270; 82550; 82553; 82607; 82728; 82746; 82947; 83036; 83518; 83540; 83605; 83690; 83735; 83930; 83935; 84295; 84300; 84439; 84443; 84466; 84484; 84520; 85025; 85045; 86256; 86671; 87040; 87070; 87086; 87400; 87493; 99284; J2405; J2543; J3370; J3420; J7030; J7070; Q9967

== ENCOUNTER → 2018-11-15 | Day surgery (SDC) | payer OTHER ==
[~2018-11-15] MED LIST: AMLODIPINE BESY10 MG PO; FENTANYL CITRATE/PF 100MCG/2 ML INJ ONE; FOLIC ACID1 MG PO; HYOSCYAMINE SULFATE 0.5 MG/ML INJ ONE; LISINOPRIL10 MG PO; MIDAZOLAM HCL 2 MG/2 ML VIAL ONE; PROPOFOL IV EMULSION 10 MG/ML 50 ML VIAL ONE; VANCOCIN HCL250 MG PO
[2018-11-15 15:45] VITALS: BP 125/96
--- NOTE | 2018-11-15 22:03 | Operative Report ---
DATE OF PROCEDURE: 11/15/2018 SURGEON: Josiah Cabral MD PROCEDURES: Colonoscopy and polypectomy. INDICATIONS FOR COLONOSCOPY: Colorectal cancer screening. MEDICATIONS: The patient was done under MAC. Please see anesthesiologist's note. DESCRIPTION OF PROCEDURE: With the patient in left lateral decubitus position, flexible fiberoptic Olympus colonoscope was inserted into the rectum with ease and advanced all the way to the cecum. The scattered diverticular disease was noted throughout. The mucosa overlying the cecum appeared to be within normal limits. One polyp was hot biopsied from the proximal ascending colon and polypectomy site was hemoclipped x2. The rest of the ascending, transverse, and descending were grossly within normal limits other than for some scattered diverticular disease. One polyp was hot biopsied from the sigmoid colon. The rectum appeared to be within normal limits. The scope was then retroflexed into the distal rectum and moderate-sized internal hemorrhoids were noted, none of which was actively bleeding. The scope was then straightened out. It was subsequently withdrawn. The patient tolerated the procedure well. IMPRESSION: 1. Ascending colon polyp hot biopsied, polypectomy site hemoclipped x2. 2. Diverticulosis. 3. Sigmoid colon polyp x1 hot biopsied. 4. Internal hemorrhoids, none actively bleeding. PLAN: Follow up histology. Initiate high-fiber, low-fat diet. Initiate high-fiber supplement. The patient might benefit from a followup colonoscopy in 3 to 5 years. Josiah Cabral MD [facility] [place] /[id number] cc: Oren Villagran III, MD
== END | disposition home or self-care (01) ==
LOC: OR 11:55
PROVIDERS: ATTEND Internal Medicine Gastroenterology
DX: K61.2 Anorectal abscess (principal); D12.0 Benign neoplasm of cecum; K57.30 Diverticulosis of large intestine without perforation or abscess without bleeding; K64.8 Other hemorrhoids; I10 Essential (primary) hypertension; Z01.810 Encounter for preprocedural cardiovascular examination
CPT/HCPCS: 45384; 93005; J1980; J2250; J2704; 45378

== ENCOUNTER 2020-07-17 23:01 | Inpatient (IN) | payer OTHER ==
[~2020-07-17] VITALS: Ht 180.3 cm; Wt 85.3 kg
[~2020-07-17 23:01] MED LIST changes: -FENTANYL CITRATE/PF 100MCG/2 ML INJ ONE; -HYOSCYAMINE SULFATE 0.5 MG/ML INJ ONE; -MIDAZOLAM HCL 2 MG/2 ML VIAL ONE; -PROPOFOL IV EMULSION 10 MG/ML 50 ML VIAL ONE
[2020-07-17] MEDS ORDERED: CEFEPIME 1GM/NS 0.9% 50 ML 50 ML IV STA (23:08)
[2020-07-17 23:20] LABS: BASOPHILS % 0.2 % (0.0-1.0); EOSINOPHILS # (AUTO) 0.1 (0.0-0.4); EOSINOPHILS % 0.6 % (0.0-6.0); HEMATOCRIT 35.1 % (38.2-49.6); HEMOGLOBIN 12.8 g/dL (14.0-18.0); LYMPHOCYTES % 11.7 % (18.0-39.1); MEAN CORPUSCULAR HEMOGLOBIN 36.9 pg (28-32); MEAN CORPUSCULAR HGB CONC 36.5 g/dL (31-35); MEAN CORPUSCULAR VOLUME 101.2 fL (81-99); MONOCYTES # (AUTO) 2.7 (0.2-0.8); MONOCYTES % 15.9 % (4.4-11.3); NEUTROPHILS # (AUTO) 12.1 (2.1-6.9); NEUTROPHILS % 71.1 % (38.7-80.0); PLATELET COUNT 227 x10e3/uL (140-360); RED BLOOD COUNT 3.47 x10e6/uL (4.3-5.7); RED CELL DISTRIBUTION WIDTH 12.3 % (11.7-14.4)
[2020-07-17 23:29] LABS: INR 1.37; PROTHROMBIN TIME 17.5 seconds (11.9-14.5)
[2020-07-17] MEDS ORDERED: SODIUM CHLORIDE 0.9% 1000ML 1,000 ML ONE (23:33)
[2020-07-17] MEDS ORDERED: PANTOPRAZOLE 40 MG 10ML VIAL IV STA (23:40)
[2020-07-17] MEDS ORDERED: SODIUM CHLORIDE 0.9% 1000ML 1,000 ML IV ONE (23:45)
[2020-07-17] MEDS ORDERED: PANTOPRAZOLE INJ 80 MG in SODIUM CHLORIDE 0.9% 100 ML IV SCH (23:45)
[2020-07-17 23:46] LABS: ALANINE AMINOTRANSFERASE 37 IU/L (0-55); ALBUMIN 2.4 g/dL (3.5-5.0); ALBUMIN/GLOBULIN RATIO 0.5 (0.8-2.0); ALKALINE PHOSPHATASE 199 IU/L (40-150); ANION GAP 13.3 mmol/L (8-16); BLOOD UREA NITROGEN 7 mg/dL (7-26); BUN/CREATININE RATIO 11 (6-25); CARBON DIOXIDE 29 mmol/L (22-29); CHLORIDE 84 mmol/L (98-107); CREATINE KINASE 79 IU/L (30-200); CREATININE, SERUM 0.64 mg/dL (0.72-1.25); EST GLOMERULAR FILTRATION RATE > 60 ML/MIN (60-); GLUCOSE 139 mg/dL (74-118); POTASSIUM 3.3 mmol/L (3.5-5.1); SODIUM 123 mmol/L (136-145)
[2020-07-18] VITALS (9 sets, daily range): BP systolic 113–147; BP diastolic 80–97
[2020-07-18] MEDS: SODIUM CHLORIDE 0.9% 1000ML 1,000 ML IV SCH ×4 (00:57→23:45)
[2020-07-18] MEDS ORDERED: AMLODIPINE-BEN1 EAC5 PO (00:58)
[2020-07-18] MEDS ORDERED: ONDANSETRON HCL INJ 2MG/ML 2ML 2 MG/ML VIAL IV PRN (01:00)
[2020-07-18] MEDS ORDERED: SODIUM CHLORIDE 0.9% 100 ML ONE (01:04)
[2020-07-18] MEDS ORDERED: IOPAMIDOL 370 MG/ML 200 ML INFUS..BTL INJ ONE (01:04)
[2020-07-18] MEDS ORDERED: ONDANSETRON HCL INJ 2MG/ML 2ML 2 MG/ML VIAL ONE (01:13)
[2020-07-18] MEDS ORDERED: OCTREOTIDE ACETATE 0.05 MG/ML AMP IV ONE (03:45)
[2020-07-18] MEDS ORDERED: THIAMINE HCL INJ 100 MG/ML 2ML VIAL IV ONE (03:45)
[2020-07-18] MEDS ORDERED: PHYTONADIONE 10 MG/ML AMP IV ONE (03:45)
[2020-07-18] MEDS ORDERED: PHYTONADIONE INJ ONE (04:15)
[2020-07-18] MEDS ORDERED: SODIUM CHLORIDE 0.9% INJ ONE (04:15)
[2020-07-18] MEDS ORDERED: OCTREOTIDE ACETATE 1 ML ONE (04:40)
[2020-07-18] MEDS ORDERED: SODIUM CHLORIDE 0.9% 250ML 250 ML ONE (05:22)
[2020-07-18] MEDS: OCTREOTIDE ACETATE 500 MCG in SODIUM CHLORIDE 0.9% 250ML 249 ML IV SCH ×2 (05:34→17:02)
[2020-07-18] MEDS: PROPRANOLOL HCL 10 MG TAB PO SCH ×3 (06:00→22:00)
[2020-07-18 06:17] LABS: BASOPHILS % 0.2 % (0.0-1.0); EOSINOPHILS % 0.1 % (0.0-6.0); HEMATOCRIT 35.2 % (38.2-49.6); HEMOGLOBIN 12.8 g/dL (14.0-18.0); LYMPHOCYTES % 12.8 % (18.0-39.1); MEAN CORPUSCULAR HEMOGLOBIN 37.6 pg (28-32); MEAN CORPUSCULAR HGB CONC 36.4 g/dL (31-35); MEAN CORPUSCULAR VOLUME 103.5 fL (81-99); MONOCYTES # (AUTO) 2.1 (0.2-0.8); MONOCYTES % 13.6 % (4.4-11.3); NEUTROPHILS # (AUTO) 11.1 (2.1-6.9); NEUTROPHILS % 72.8 % (38.7-80.0); PLATELET COUNT 240 x10e3/uL (140-360); RED CELL DISTRIBUTION WIDTH 12.5 % (11.7-14.4)
[2020-07-18 06:34] LABS: ALANINE AMINOTRANSFERASE 36 IU/L (0-55); ALBUMIN 2.4 g/dL (3.5-5.0); ALBUMIN/GLOBULIN RATIO 0.5 (0.8-2.0); ALKALINE PHOSPHATASE 186 IU/L (40-150); ANION GAP 12.6 mmol/L (8-16); BLOOD UREA NITROGEN 7 mg/dL (7-26); BUN/CREATININE RATIO 11 (6-25); CALCIUM 7.8 mg/dL (8.4-10.2); CARBON DIOXIDE 27 mmol/L (22-29); CHLORIDE 90 mmol/L (98-107); CREATININE, SERUM 0.62 mg/dL (0.72-1.25); EST GLOMERULAR FILTRATION RATE > 60 ML/MIN (60-); GLUCOSE 111 mg/dL (74-118); POTASSIUM 3.6 mmol/L (3.5-5.1); SODIUM 126 mmol/L (136-145)
[2020-07-18 07:33] LABS: LYMPHOCYTES % (MANUAL) 12 % (19-48); MONOCYTES % (MANUAL) 8 % (3.4-9.0); NEUTROPHILS % (MANUAL) 80 % (40-74); PLATELET ESTIMATE ADEQUATE; PLATELET MORPHOLOGY COMMENT NORMAL; RBC MORPHOLOGY COMMENT NORMAL
[2020-07-18] MEDS ORDERED: MULTIVITAMINS- 12 INJECTION 10 ML, FOLIC ACID MDV 5 MG, THIAMINE HCL INJ 100 MG in SODI... IV SCH (08:00)
[2020-07-18] MEDS ORDERED: PANTOPRAZOLE 40 MG 10ML VIAL IV SCH (09:00)
[2020-07-18] MEDS ORDERED: PHYTONADIONE 10 MG/ML AMP INJ ONE (09:15)
[2020-07-18] MEDS ORDERED: SODIUM CHLORIDE 0.9% IV SCH (09:30)
[2020-07-18] MEDS ORDERED: THIAMINE HCL IV SCH (09:30)
[2020-07-18] MEDS ORDERED: FOLIC ACID IV SCH (09:30)
[2020-07-18] MEDS ORDERED: PHYTONADIONE 10MG/ML 20 MG in SODIUM CHLORIDE 0.9% 50ML 50 ML SC ONE (09:30)
[2020-07-18] MEDS ORDERED: PANTOPRAZOLE 40 MG 10ML VIAL ONE (10:04)
[2020-07-18] MEDS: THIAMINE HCL IV SCH (13:29)
[2020-07-18] MEDS: SODIUM CHLORIDE 0.9% IV SCH (13:29)
[2020-07-18] MEDS: FOLIC ACID IV SCH (13:29)
[2020-07-18 14:07] LABS: BASOPHILS % 0.3 % (0.0-1.0); EOSINOPHILS % 0.2 % (0.0-6.0); HEMOGLOBIN 10.9 g/dL (14.0-18.0); LYMPHOCYTES # (AUTO) 1.9 (1.0-3.2); MEAN CORPUSCULAR HEMOGLOBIN 36.6 pg (28-32); MEAN CORPUSCULAR HGB CONC 35.2 g/dL (31-35); MONOCYTES # (AUTO) 1.7 (0.2-0.8); MONOCYTES % 14.5 % (4.4-11.3); NEUTROPHILS # (AUTO) 8.1 (2.1-6.9); NEUTROPHILS % 68.6 % (38.7-80.0); PLATELET COUNT 204 x10e3/uL (140-360); RED BLOOD COUNT 2.98 x10e6/uL (4.3-5.7); RED CELL DISTRIBUTION WIDTH 12.9 % (11.7-14.4)
[2020-07-18] MEDS: PANTOPRAZOL 40MG/SOD CHL 0.9% 50 ML IV SCH ×3 (14:48→19:36)
[2020-07-18 16:40] LABS: BODY FLUID APPEARANCE SL.CLOUDY; BODY FLUID COLOR YELLOW; BODY FLUID TYPE PERITONEAL
[2020-07-18 16:41] LABS: RBC,BODY FLUID 57 cells/uL; WBC,BODY FLUID 189 cells/uL
[2020-07-18] MEDS: NICOTINE 14 MG/EA PATCH TOP SCH (16:54)
[2020-07-18 17:41] LABS: LYMPHOCYTES,BODY FLUID 20 %; MONO/MACROPHG,BODY FLUID 24 %; NEUTROPHILS,BODY FLUID 10 %; OTHER CELLS,BODY FLUID 46 %
[2020-07-18 18:00] LABS: BASOPHILS % 0.4 % (0.0-1.0); EOSINOPHILS % 0.3 % (0.0-6.0); HEMATOCRIT 30.6 % (38.2-49.6); HEMOGLOBIN 10.8 g/dL (14.0-18.0); LYMPHOCYTES # (AUTO) 1.5 (1.0-3.2); LYMPHOCYTES % 13.8 % (18.0-39.1); MEAN CORPUSCULAR HEMOGLOBIN 36.6 pg (28-32); MEAN CORPUSCULAR HGB CONC 35.3 g/dL (31-35); MEAN CORPUSCULAR VOLUME 103.7 fL (81-99); MONOCYTES # (AUTO) 1.5 (0.2-0.8); MONOCYTES % 13.7 % (4.4-11.3); NEUTROPHILS % 71.5 % (38.7-80.0); PLATELET COUNT 184 x10e3/uL (140-360); RED BLOOD COUNT 2.95 x10e6/uL (4.3-5.7); RED CELL DISTRIBUTION WIDTH 12.6 % (11.7-14.4)
[2020-07-19] VITALS (8 sets, daily range): BP systolic 105–113; BP diastolic 72–78
[2020-07-19] MEDS ORDERED: OCTREOTIDE ACETATE 1 ML ONE (01:03)
[2020-07-19] MEDS ORDERED: SODIUM CHLORIDE 0.9% 250ML 250 ML ONE ×2 (01:06→13:11)
[2020-07-19] MEDS: OCTREOTIDE ACETATE 500 MCG in SODIUM CHLORIDE 0.9% 250ML 249 ML IV SCH ×3 (01:10→21:20)
[2020-07-19] MEDS: PANTOPRAZOL 40MG/SOD CHL 0.9% 50 ML IV SCH ×5 (01:12→19:16)
[2020-07-19] MEDS: PROPRANOLOL HCL 10 MG TAB PO SCH ×3 (05:44→20:41)
[2020-07-19 06:08] LABS: BASOPHILS # (AUTO) 0.1 (0.0-0.1); BASOPHILS % 0.6 % (0.0-1.0); EOSINOPHILS # (AUTO) 0.1 (0.0-0.4); EOSINOPHILS % 0.5 % (0.0-6.0); HEMATOCRIT 31.1 % (38.2-49.6); HEMOGLOBIN 10.8 g/dL (14.0-18.0); LYMPHOCYTES # (AUTO) 1.9 (1.0-3.2); LYMPHOCYTES % 18.5 % (18.0-39.1); MEAN CORPUSCULAR HEMOGLOBIN 36.2 pg (28-32); MEAN CORPUSCULAR HGB CONC 34.7 g/dL (31-35); MEAN CORPUSCULAR VOLUME 104.4 fL (81-99); MONOCYTES # (AUTO) 1.3 (0.2-0.8); MONOCYTES % 12.7 % (4.4-11.3); NEUTROPHILS # (AUTO) 6.9 (2.1-6.9); NEUTROPHILS % 67.4 % (38.7-80.0); PLATELET COUNT 182 x10e3/uL (140-360); RED BLOOD COUNT 2.98 x10e6/uL (4.3-5.7); RED CELL DISTRIBUTION WIDTH 12.8 % (11.7-14.4)
[2020-07-19 06:35] LABS: ANION GAP 9.6 mmol/L (8-16); BLOOD UREA NITROGEN 6 mg/dL (7-26); BUN/CREATININE RATIO 11 (6-25); CALCIUM 7.2 mg/dL (8.4-10.2); CARBON DIOXIDE 28 mmol/L (22-29); CHLORIDE 93 mmol/L (98-107); CREATININE, SERUM 0.56 mg/dL (0.72-1.25); EST GLOMERULAR FILTRATION RATE > 60 ML/MIN (60-); GLUCOSE 75 mg/dL (74-118); POTASSIUM 3.6 mmol/L (3.5-5.1); SODIUM 127 mmol/L (136-145)
[2020-07-19] MEDS: SODIUM CHLORIDE 0.9% 1000ML 1,000 ML IV SCH ×2 (07:45→14:06)
[2020-07-19] MEDS: NICOTINE 14 MG/EA PATCH TOP SCH (08:58)
[2020-07-19] MEDS ORDERED: PROPOFOL IV EMULSION 10 MG/ML 20 ML VIAL ONE (12:51)
[2020-07-19] MEDS ORDERED: LIDOCAINE HCL 2% LOCAL INJ 5 ML SDV VIAL INJ ONE (12:51)
[2020-07-19] MEDS ORDERED: METOCLOPRAMIDE HCL 10 MG/2ML VIAL IV NR (13:00)
[2020-07-19] MEDS ORDERED: MIDAZOLAM HCL 5 MG/ML VIAL ONE (13:12)
[2020-07-19] MEDS ORDERED: FENTANYL CITRATE/PF 100MCG/2 ML INJ ONE (13:12)
[2020-07-19] MEDS: SODIUM CHLORIDE 0.9% IV SCH (13:19)
[2020-07-19] MEDS: THIAMINE HCL IV SCH (13:19)
[2020-07-19] MEDS: FOLIC ACID IV SCH (13:19)
[2020-07-19 13:50] LABS: BASOPHILS # (AUTO) 0.1 (0.0-0.1); BASOPHILS % 0.5 % (0.0-1.0); EOSINOPHILS % 0.4 % (0.0-6.0); HEMATOCRIT 30.4 % (38.2-49.6); HEMOGLOBIN 10.8 g/dL (14.0-18.0); LYMPHOCYTES # (AUTO) 1.6 (1.0-3.2); LYMPHOCYTES % 14.5 % (18.0-39.1); MEAN CORPUSCULAR HEMOGLOBIN 37.8 pg (28-32); MEAN CORPUSCULAR HGB CONC 35.5 g/dL (31-35); MEAN CORPUSCULAR VOLUME 106.3 fL (81-99); MONOCYTES # (AUTO) 1.3 (0.2-0.8); NEUTROPHILS # (AUTO) 7.9 (2.1-6.9); NEUTROPHILS % 72.3 % (38.7-80.0); PLATELET COUNT 178 x10e3/uL (140-360); RED BLOOD COUNT 2.86 x10e6/uL (4.3-5.7); RED CELL DISTRIBUTION WIDTH 12.5 % (11.7-14.4)
[2020-07-19 18:22] LABS: BASOPHILS # (AUTO) 0.1 (0.0-0.1); BASOPHILS % 0.6 % (0.0-1.0); EOSINOPHILS # (AUTO) 0.1 (0.0-0.4); EOSINOPHILS % 0.7 % (0.0-6.0); HEMATOCRIT 31.7 % (38.2-49.6); LYMPHOCYTES # (AUTO) 2.1 (1.0-3.2); LYMPHOCYTES % 18.2 % (18.0-39.1); MEAN CORPUSCULAR HEMOGLOBIN 36.9 pg (28-32); MEAN CORPUSCULAR HGB CONC 34.7 g/dL (31-35); MEAN CORPUSCULAR VOLUME 106.4 fL (81-99); MONOCYTES # (AUTO) 1.7 (0.2-0.8); MONOCYTES % 14.3 % (4.4-11.3); NEUTROPHILS # (AUTO) 7.6 (2.1-6.9); NEUTROPHILS % 65.9 % (38.7-80.0); PLATELET COUNT 184 x10e3/uL (140-360); RED BLOOD COUNT 2.98 x10e6/uL (4.3-5.7); RED CELL DISTRIBUTION WIDTH 12.7 % (11.7-14.4)
[2020-07-20] VITALS (8 sets, daily range): BP systolic 103–130; BP diastolic 69–86
[2020-07-20] MEDS: PANTOPRAZOL 40MG/SOD CHL 0.9% 50 ML IV SCH ×5 (00:35→21:45)
[2020-07-20] MEDS: SODIUM CHLORIDE 0.9% 1000ML 1,000 ML IV SCH ×4 (01:23→23:08)
[2020-07-20] MEDS: PROPRANOLOL HCL 10 MG TAB PO SCH ×3 (05:05→21:45)
[2020-07-20] MEDS: OCTREOTIDE ACETATE 500 MCG in SODIUM CHLORIDE 0.9% 250ML 249 ML IV SCH ×3 (05:06→18:46)
[2020-07-20] MEDS: THIAMINE HCL IV SCH (08:15)
[2020-07-20] MEDS: SODIUM CHLORIDE 0.9% IV SCH (08:15)
[2020-07-20] MEDS: FOLIC ACID IV SCH (08:15)
[2020-07-20] MEDS: NICOTINE 14 MG/EA PATCH TOP SCH (08:20)
[2020-07-20 10:20] LABS: BASOPHILS # (AUTO) 0.1 (0.0-0.1); BASOPHILS % 0.8 % (0.0-1.0); EOSINOPHILS # (AUTO) 0.1 (0.0-0.4); EOSINOPHILS % 0.7 % (0.0-6.0); HEMATOCRIT 33.4 % (38.2-49.6); HEMOGLOBIN 11.7 g/dL (14.0-18.0); LYMPHOCYTES # (AUTO) 1.4 (1.0-3.2); LYMPHOCYTES % 15.7 % (18.0-39.1); MEAN CORPUSCULAR HEMOGLOBIN 37.1 pg (28-32); MONOCYTES # (AUTO) 1.1 (0.2-0.8); MONOCYTES % 12.2 % (4.4-11.3); NEUTROPHILS # (AUTO) 6.4 (2.1-6.9); NEUTROPHILS % 70.4 % (38.7-80.0); PLATELET COUNT 192 x10e3/uL (140-360); RED BLOOD COUNT 3.15 x10e6/uL (4.3-5.7); RED CELL DISTRIBUTION WIDTH 12.7 % (11.7-14.4)
[2020-07-20 10:43] LABS: ANION GAP 11.6 mmol/L (8-16); BLOOD UREA NITROGEN 5 mg/dL (7-26); BUN/CREATININE RATIO 9 (6-25); CARBON DIOXIDE 25 mmol/L (22-29); CHLORIDE 96 mmol/L (98-107); CREATININE, SERUM 0.57 mg/dL (0.72-1.25); EST GLOMERULAR FILTRATION RATE > 60 ML/MIN (60-); GLUCOSE 127 mg/dL (74-118); POTASSIUM 3.6 mmol/L (3.5-5.1); SODIUM 129 mmol/L (136-145)
[2020-07-20 14:37] LABS: BASOPHILS # (AUTO) 0.1 (0.0-0.1); BASOPHILS % 0.7 % (0.0-1.0); EOSINOPHILS # (AUTO) 0.1 (0.0-0.4); EOSINOPHILS % 0.7 % (0.0-6.0); HEMATOCRIT 29.9 % (38.2-49.6); HEMOGLOBIN 10.4 g/dL (14.0-18.0); LYMPHOCYTES # (AUTO) 1.6 (1.0-3.2); LYMPHOCYTES % 16.6 % (18.0-39.1); MEAN CORPUSCULAR HEMOGLOBIN 36.6 pg (28-32); MEAN CORPUSCULAR HGB CONC 34.8 g/dL (31-35); MEAN CORPUSCULAR VOLUME 105.3 fL (81-99); MONOCYTES # (AUTO) 1.3 (0.2-0.8); MONOCYTES % 13.3 % (4.4-11.3); NEUTROPHILS # (AUTO) 6.5 (2.1-6.9); NEUTROPHILS % 68.5 % (38.7-80.0); PLATELET COUNT 176 x10e3/uL (140-360); RED BLOOD COUNT 2.84 x10e6/uL (4.3-5.7); RED CELL DISTRIBUTION WIDTH 12.6 % (11.7-14.4)
[2020-07-20 17:37] LABS: BASOPHILS # (AUTO) 0.1 (0.0-0.1); BASOPHILS % 0.6 % (0.0-1.0); EOSINOPHILS # (AUTO) 0.1 (0.0-0.4); EOSINOPHILS % 0.9 % (0.0-6.0); HEMATOCRIT 30.3 % (38.2-49.6); HEMOGLOBIN 10.6 g/dL (14.0-18.0); LYMPHOCYTES # (AUTO) 1.6 (1.0-3.2); LYMPHOCYTES % 15.7 % (18.0-39.1); MEAN CORPUSCULAR HEMOGLOBIN 36.6 pg (28-32); MEAN CORPUSCULAR VOLUME 104.5 fL (81-99); MONOCYTES # (AUTO) 1.4 (0.2-0.8); MONOCYTES % 13.9 % (4.4-11.3); NEUTROPHILS # (AUTO) 7.1 (2.1-6.9); NEUTROPHILS % 68.6 % (38.7-80.0); PLATELET COUNT 187 x10e3/uL (140-360); RED CELL DISTRIBUTION WIDTH 12.5 % (11.7-14.4)
[2020-07-21 00:25] VITALS: BP 116/77
[2020-07-21] MEDS ORDERED: SODIUM CHLORIDE FLUSH 10 ML SYR INJ PRN (01:00)
[2020-07-21] MEDS ORDERED: FUROSEMIDE 40 MG TAB PO ONE (01:00)
[2020-07-21] MEDS ORDERED: SPIRONOLACTONE 25 MG TAB PO ONE (01:00)
[2020-07-21] MEDS: PANTOPRAZOL 40MG/SOD CHL 0.9% 50 ML IV SCH ×2 (01:02→09:11)
[2020-07-21] MEDS: PROPRANOLOL HCL 10 MG TAB PO SCH (05:27)
[2020-07-21 05:32] VITALS: BP 109/69
[2020-07-21 05:57] LABS: BASOPHILS # (AUTO) 0.1 (0.0-0.1); BASOPHILS % 0.8 % (0.0-1.0); EOSINOPHILS # (AUTO) 0.1 (0.0-0.4); HEMATOCRIT 30.5 % (38.2-49.6); LYMPHOCYTES # (AUTO) 1.6 (1.0-3.2); MEAN CORPUSCULAR HEMOGLOBIN 37.4 pg (28-32); MEAN CORPUSCULAR HGB CONC 36.1 g/dL (31-35); MEAN CORPUSCULAR VOLUME 103.7 fL (81-99); MONOCYTES # (AUTO) 1.2 (0.2-0.8); MONOCYTES % 12.6 % (4.4-11.3); NEUTROPHILS # (AUTO) 6.3 (2.1-6.9); NEUTROPHILS % 68.4 % (38.7-80.0); PLATELET COUNT 186 x10e3/uL (140-360); RED BLOOD COUNT 2.94 x10e6/uL (4.3-5.7); RED CELL DISTRIBUTION WIDTH 12.3 % (11.7-14.4)
[2020-07-21 06:24] LABS: ALANINE AMINOTRANSFERASE 41 IU/L (0-55); ALBUMIN 1.9 g/dL (3.5-5.0); ALBUMIN/GLOBULIN RATIO 0.5 (0.8-2.0); ALKALINE PHOSPHATASE 133 IU/L (40-150); ANION GAP 10.3 mmol/L (8-16); BLOOD UREA NITROGEN < 5 mg/dL (7-26); CARBON DIOXIDE 25 mmol/L (22-29); CHLORIDE 98 mmol/L (98-107); CREATININE, SERUM 0.59 mg/dL (0.72-1.25); EST GLOMERULAR FILTRATION RATE > 60 ML/MIN (60-); GLUCOSE 107 mg/dL (74-118); MAGNESIUM 1.4 MG/DL (1.3-2.1); PHOSPHORUS 2.9 MG/DL (2.3-4.7); POTASSIUM 3.3 mmol/L (3.5-5.1); SODIUM 130 mmol/L (136-145)
[2020-07-21 06:28] LABS: BUN/CREATININE RATIO 8 (6-25)
[2020-07-21 06:33] LABS: CALCIUM 6.9 mg/dL (8.4-10.2)
[2020-07-21] MEDS ORDERED: CALCIUM GLUCONATE 10% INJ 4.65 MEQ in SODIUM CHLORIDE 0.9% 50ML 50 ML IV ONE ×2 (07:20→09:30)
[2020-07-21 07:35] VITALS: BP 110/76
[2020-07-21] MEDS ORDERED: FUROSEMIDE 40 MG TAB PO SCH (09:00)
[2020-07-21] MEDS ORDERED: SPIRONOLACTONE 25 MG TAB PO SCH (09:00)
[2020-07-21] MEDS: NICOTINE 14 MG/EA PATCH TOP SCH (09:11)
[2020-07-21] MEDS: FOLIC ACID IV SCH (09:23)
[2020-07-21] MEDS: SODIUM CHLORIDE 0.9% IV SCH (09:23)
[2020-07-21] MEDS: THIAMINE HCL IV SCH (09:23)
[2020-07-21] MEDS ORDERED: NICODERM CQ1 EAC1 TOP (10:09)
[2020-07-21] MEDS ORDERED: ALDACTONE25 MG PO (10:09)
[2020-07-21] MEDS ORDERED: FUROSEMIDE40 MG PO (10:09)
[2020-07-21] MEDS ORDERED: PROPRANOLOL HCL10 MG PO (10:09)
[2020-07-21] MEDS ORDERED: MAGNESIUM SULFATE 2GM/50ML 50 ML IV ONE (10:15)
[2020-07-21] MEDS ORDERED: PANTOPRAZOLE SO40 MG PO (10:55)
[2020-07-21 11:20] VITALS: BP 110/76
[2020-07-21 11:27] VITALS: BP 122/82
[2020-07-21] MEDS ORDERED: MAGNESIUM SULF 1GRAM/DEXTROSE 100 ML IV ONE (12:15)
[2020-07-21] MEDS ORDERED: POTASSIUM CHLORIDE 20 MEQ TAB CR PO ONE (13:15)
== END 2020-07-21 13:05 | disposition home or self-care (01) | DRG 433 ==
LOC: ER 23:30 → ERHOLD 23:38 → MED/SURG3 07-18 02:38
PROVIDERS: ADMIT Internal Medicine; ATTEND Internal Medicine
PROC: 0DB78ZX Excision of Stomach, Pylorus, Via Natural or Artificial Opening Endoscopic, Diagnostic (ICD-10-PCS; 2020-07-17)
PROC: 0W9G3ZZ Drainage of Peritoneal Cavity, Percutaneous Approach (ICD-10-PCS; principal; 2020-07-18)
DX: K70.31 Alcoholic cirrhosis of liver with ascites (principal); E87.1 Hypo-osmolality and hyponatremia; K76.6 Portal hypertension; K22.10 Ulcer of esophagus without bleeding; I10 Essential (primary) hypertension; F17.210 Nicotine dependence, cigarettes, uncomplicated; F10.20 Alcohol dependence, uncomplicated; K31.89 Other diseases of stomach and duodenum; K44.9 Diaphragmatic hernia without obstruction or gangrene; K29.70 Gastritis, unspecified, without bleeding; Z20.828 Contact with and (suspected) exposure to other viral communicable diseases; K64.9 Unspecified hemorrhoids
CPT/HCPCS: 36415; 43239; 49083; 71045; 74174; 74470; 78278; 80048; 80053; 82550; 82553; 83605; 83690; 83735; 84100; 84484; 85014; 85018; 85025; 85610; 86850; 86900; 87040; 87070; 87205; 88112; 88305; 88312; 89051; 99284; A9512; C1729; J0610; J0692; J2001; J2250; J2353; J2354; J2405; J2765; J3010; J3411; J3430; J3475; J7030; J7050; Q9967; U0002

== ENCOUNTER → 2020-08-29 | Day surgery (SDC) | payer OTHER ==
[~2020-08-29] MED LIST changes: +ALDACTONE25 MG PO; +AMLODIPINE-BEN1 EAC5 PO; +FENTANYL CITRATE/PF 100MCG/2 ML INJ ONE; +FUROSEMIDE40 MG PO; +MIDAZOLAM HCL 2 MG/2 ML VIAL ONE; +NICODERM CQ1 EAC1 TOP; +PANTOPRAZOLE SO40 MG PO; +PROPRANOLOL HCL10 MG PO
[2020-08-29 08:40] VITALS: BP 113/78
[2020-08-29 08:42] LABS: BASOPHILS % 0.4 % (0.0-1.0); EOSINOPHILS # (AUTO) 0.1 (0.0-0.4); EOSINOPHILS % 1.8 % (0.0-6.0); HEMATOCRIT 36.5 % (38.2-49.6); LYMPHOCYTES # (AUTO) 1.5 (1.0-3.2); LYMPHOCYTES % 26.7 % (18.0-39.1); MEAN CORPUSCULAR HEMOGLOBIN 35.2 pg (28-32); MEAN CORPUSCULAR HGB CONC 35.6 g/dL (31-35); MEAN CORPUSCULAR VOLUME 98.9 fL (81-99); MONOCYTES # (AUTO) 0.8 (0.2-0.8); MONOCYTES % 14.7 % (4.4-11.3); NEUTROPHILS # (AUTO) 3.1 (2.1-6.9); NEUTROPHILS % 56.2 % (38.7-80.0); PLATELET COUNT 165 x10e3/uL (140-360); RED BLOOD COUNT 3.69 x10e6/uL (4.3-5.7); RED CELL DISTRIBUTION WIDTH 11.9 % (11.7-14.4)
[2020-08-29 09:09] LABS: ALANINE AMINOTRANSFERASE 25 IU/L (0-55); ALBUMIN 2.9 g/dL (3.5-5.0); ALBUMIN/GLOBULIN RATIO 0.6 (0.8-2.0); ALKALINE PHOSPHATASE 88 IU/L (40-150); ANION GAP 12.1 mmol/L (8-16); BLOOD UREA NITROGEN 5 mg/dL (7-26); BUN/CREATININE RATIO 7 (6-25); CALCIUM 8.7 mg/dL (8.4-10.2); CARBON DIOXIDE 26 mmol/L (22-29); CHLORIDE 94 mmol/L (98-107); CREATININE, SERUM 0.72 mg/dL (0.72-1.25); EST GLOMERULAR FILTRATION RATE > 60 ML/MIN (60-); GLUCOSE 97 mg/dL (74-118); POTASSIUM 5.1 mmol/L (3.5-5.1); SODIUM 127 mmol/L (136-145)
== END | disposition home or self-care (01) ==
LOC: OR 06:29
PROVIDERS: ATTEND Internal Medicine Gastroenterology
DX: K22.10 Ulcer of esophagus without bleeding (principal); K70.30 Alcoholic cirrhosis of liver without ascites; I85.10 Secondary esophageal varices without bleeding; K29.70 Gastritis, unspecified, without bleeding; K44.9 Diaphragmatic hernia without obstruction or gangrene; K76.6 Portal hypertension; K31.89 Other diseases of stomach and duodenum; I10 Essential (primary) hypertension; Z01.810 Encounter for preprocedural cardiovascular examination; Z01.812 Encounter for preprocedural laboratory examination; Z20.822 Contact with and (suspected) exposure to COVID-19
CPT/HCPCS: 36415; 43239; 80053; 85025; 93005; J2250; J3010; U0002